=== PATIENT | male | born 1990 | race Hispanic/Latino ===

== ENCOUNTER 2022-08-29 06:36 | Emergency (ER) | payer OTHER ==
[~2022-08-29] VITALS: Ht 180.3 cm; Wt 109.8 kg
[2022-08-29 07:50] LABS: BASOPHILS % (AUTO) 0.3 % (0.0-5.0); EOSINOPHILS % (AUTO) 3.8 % (0.0-8.0); HEMATOCRIT 44.7 % (42-54); LYMPHOCYTES % (AUTO) 8.7 % (21.0-51.0); MEAN CORPUSCULAR HEMOGLOBIN 30.1 pg (27.0-33.0); MEAN CORPUSCULAR HGB CONC 32.9 g/dL (32.0-36.0); MEAN CORPUSCULAR VOLUME 91.6 fL (79-99); MONOCYTES % (AUTO) 5.5 % (3.0-13.0); NEUTROPHILS % (AUTO) 81.4 % (40.0-77.0); PLATELET COUNT (AUTO) 275 K/uL (130-400); RED BLOOD CELL COUNT(AUTO) 4.88 MIL/uL (4.50-6.20); RED CELL DISTRIBUTION WIDTH 14.2 % (11.0-15.5); WHITE BLOOD COUNT (AUTO) 13.5 K/uL (4.8-10.8)
[2022-08-29 08:04] LABS: ALBUMIN 3.7 g/dL (3.5-5.0); TOTAL PROTEIN, SERUM 7.8 g/dL (6.0-8.3)
[2022-08-29] MEDS ORDERED: 0.9%NACL 1000ML 1,000 ML IV ONE (08:30)
[2022-08-29] MEDS ORDERED: ONDANSETRON 4MG INJ IVP ONE (08:30)
[2022-08-29] MEDS ORDERED: MORPHINE 4 MG SYG IVP ONE (08:30)
[2022-08-29] MEDS ORDERED: KETOROLAC 15MG/ML VIAL (15MG/ML) IV ONE (08:30)
[2022-08-29] MEDS ORDERED: ONDA4TAB10 PO (10:45)
[2022-08-29] MEDS ORDERED: LOPE2CAP PO (10:45)
[2022-08-29 11:01] VITALS: BP 133/78
== END 2022-08-29 11:04 | disposition home or self-care (01) ==
LOC: EDH 06:36
DX: K52.9 Noninfective gastroenteritis and colitis, unspecified (principal)
CPT/HCPCS: 99285; 74176; 96374; 96361; 96375; 80053; 83690; 85025; 36415; J7030; J2405; J1885